=== PATIENT | female | born 1955 | race Two or more races ===

== ENCOUNTER 2019-04-14 10:24 | Inpatient (IN) | payer OTHER ==
[~2019-04-14] VITALS: Ht 162.6 cm; Wt 74.8 kg
[~2019-04-14 10:24] MED LIST: ASPI-630 PO; BISO1TAB45 PO; LEVO112T2 PO; METF500T16 PO; METO1TAB7 PO
[2019-04-14] MEDS ORDERED: VANCOMYCIN 1 GM in IV NORMAL SALINE 250ML 250 ML IV SCH (11:00)
[2019-04-14 11:58] LABS: BASO # 0.1 x10^3/uL (0.0-0.2); BASO % 1 % (0-3); EOS # 0.1 x10^3/uL (0.0-0.7); EOS % 2 % (0-3); HEMATOCRIT 37.6 % (36.0-47.0); HEMOGLOBIN 12.4 g/dL (12.0-15.5); LYMPH # 1.3 x10^3/uL (1.0-4.8); LYMPH % 22 % (24-48); MEAN CORPUSCULAR HEMOGLOBIN 30 pg (25-35); MEAN CORPUSCULAR HGB CONC 33 g/dL (31-37); MEAN CORPUSCULAR VOLUME 91 fL (79-100); MONO # 0.9 x10^3/uL (0.0-1.1); MONO % 14 % (0-9); NEUT # 3.8 x10^3uL (1.8-7.7); NEUT % 62 % (31-73); PLATELET COUNT 182 x10^3/uL (140-400); RED BLOOD COUNT 4.14 x10^6/uL (3.50-5.40); RED CELL DISTRIBUTION WIDTH 13.1 % (11.5-14.5); WHITE BLOOD COUNT 6.2 x10^3/uL (4.0-11.0)
[2019-04-14 12:24] LABS: ALBUMIN 3.3 g/dL (3.4-5.0); ALBUMIN/GLOBULIN RATIO 0.8 (1.0-1.7); CALCIUM 9.4 mg/dL (8.5-10.1); CREATININE 0.7 mg/dL (0.6-1.0); GFR 84.8; TOTAL BILIRUBIN 0.3 mg/dL (0.2-1.0); TOTAL PROTEIN 7.4 g/dL (6.4-8.2)
[2019-04-14] MEDS ORDERED: VANCOMYCIN 1.75 GM in IV NORMAL SALINE 500ML BAG 500 ML IV ONE (13:00)
[2019-04-14] MEDS: IBUPROFEN 400 MG TABLET. PO PRN (13:31)
--- NOTE | 2019-04-14 14:18 | HP ---
ADMIT DATE: 04/14/2019 CHIEF COMPLAINT: Abscess. HISTORY OF PRESENT ILLNESS: The patient was seen in the office 3 days prior to admission by Dr. Harvey with a large infected sebaceous cyst in the right lateral abdominal wall. She had this opened in an urgent care facility the day before and placed on Keflex and Bactrim and cultures done, but the opening is very small. Cultures not available. Dr. Harvey performed further more aggressive I and D and large sebaceous sac and necrotic material removed, but the patient has failed to improve despite continued oral antibiotics. PAST MEDICAL HISTORY: Well controlled diabetes, A1c 7.5, takes metformin and other medications. No other serious medical problems. ALLERGIES: No known drug allergies. SOCIAL HISTORY: Nonsmoker, , employed, nondrinker, physically active. FAMILY HISTORY: Unremarkable. REVIEW OF SYSTEMS: No other problems. OBJECTIVE: ENT: All within normal limits. NECK: No masses, nodes or bruits. LUNGS: Clear. CARDIOVASCULAR: Regular rate. No tachycardia. ABDOMEN: Large, indurated, red, open wound in the right upper abdominal wall with some bloody, slightly purulent debris and lots of duration, but no fluctuance or pus or purulent material present. There is a finding of redness around the wound. No streaks were seen or adenopathy. EXTREMITIES: Unremarkable. NEUROLOGIC: Physiologic. ASSESSMENT: Abscess of the right upper abdominal wall secondary to infected sebaceous cyst. She has failed to improve as an outpatient with oral cephalexin and Bactrim and aggressive incision and drainage. PLAN: Intravenous vancomycin, pending cultures and further evaluation as indicated. JOSEPHINE BELLA MD DR: SUZY/nts JOB#: [id number] / [id number]
[2019-04-14] MEDS: VANCOMYCIN PER PHARMACY MC PRN (14:24)
[2019-04-14 15:00] VITALS: BP 168/65
[2019-04-14 19:20] VITALS: BP 117/56
[2019-04-14] MEDS: LACTOBACILLUS RHAMNOSUS GG 1 CAPSULE. PO SCH (20:20)
[2019-04-14 23:24] VITALS: BP 126/65
[2019-04-15] MEDS: VANCOMYCIN 1.25 GM in IV NORMAL SALINE 250ML 250 ML IV SCH ×2 (02:11→13:47)
[2019-04-15 03:11] VITALS: BP 131/62
[2019-04-15 07:00] VITALS: BP 128/58
[2019-04-15 07:32] LABS: CREATININE 0.7 mg/dL (0.6-1.0); GFR 84.8
[2019-04-15] MEDS ORDERED: metFORMIN 500 MG TABLET PO SCH ×2 (08:00)
--- NOTE | 2019-04-15 08:27 | PDOC ---
Provider Note Provider Note vss, no temp, wound 30% less indurated and [id number] less circumferential, less drainage- labs ok, cont vanvo, surg consult but doubt need for further I/D- tetanus shot- NEEDS TO BE IN HOSPITAL JOSEPHINE BELLA MD April 15, 2019 08:27
[2019-04-15] MEDS: LACTOBACILLUS RHAMNOSUS GG 1 CAPSULE. PO SCH ×2 (08:36→21:03)
[2019-04-15] MEDS: ASPIRIN CHEWABLE 81 MG TABLET. PO SCH (08:37)
[2019-04-15] MEDS ORDERED: LEVOTHYROXINE 112 MCG TABLET PO SCH (09:00)
[2019-04-15] MEDS ORDERED: HCTZ PO SCH (09:00)
[2019-04-15] MEDS ORDERED: hydroCHLOROthiazide 25 MG TABLET PO SCH (09:00)
[2019-04-15] MEDS ORDERED: ATENOLOL 50 MG TABLET. PO SCH (09:00)
[2019-04-15] MEDS ORDERED: BISOPROLOL FUMARATE PO SCH (09:00)
[2019-04-15] MEDS ORDERED: DIPHTH,PERTUSS(ACELL),TET TOX 0.5 ML DISP.SYRIN. VAX IM ONE (09:00)
[2019-04-15] MEDS ORDERED: METOPROLOL SUCC 24HR ER 100 MG TAB.ER.24H. PO SCH (09:00)
[2019-04-15] MEDS ORDERED: METF10007 PO (09:23)
[2019-04-15] MEDS ORDERED: BISO1TAB10 PO (09:23)
[2019-04-15] MEDS ORDERED: LEVO88TA4 PO (09:23)
[2019-04-15] MEDS ORDERED: RANI-376 PO (09:23)
[2019-04-15] MEDS ORDERED: GLIM2TAB2 PO (09:23)
[2019-04-15] MEDS ORDERED: ATOR40TA59 PO (09:23)
[2019-04-15] MEDS: LEVOTHYROXINE 88 MCG TABLET PO SCH (09:36)
[2019-04-15] MEDS: IBUPROFEN 400 MG TABLET. PO PRN (09:37)
[2019-04-15] MEDS: GLIMEPIRIDE 2 MG TABLET. PO SCH (09:37)
[2019-04-15] MEDS: FAMOTIDINE 20 MG TABLET. PO SCH ×2 (09:37→21:03)
[2019-04-15] MEDS: BACITRACIN TOPICAL OINT 14GM TUBE. TP SCH ×3 (09:38→21:12)
--- NOTE | 2019-04-15 09:39 | PDOC2 ---
BOSTON VICENTE ORTHOTIC ASSISTANT 04/15/19 0939: CONSULT Date of Consult Date of Consult DATE: 04/15/19 TIME: 09:32 Reason for Consult Reason for Consult: abscess Referring Physician Referring Physician: Dr Fitch Identification/Chief Complaint Chief Complaint infected cyst Source Source: Chart review, Patient History of Present Illness Reason for Visit: Infected sebaceous cyst in the right lateral abdominal wall. She had an I&D done at a urgent care. It did not improve, a more extensive I&D by Dr Harvey. Continued to not improve Past Medical History Endocrine: Diabetes Past Surgical History Past Surgical History: No pertinent history Family History Family History: Other (noncontributory to current illness) Social History No ALCOHOL: none Lives: with Family Current Medications Current Medications Current Medications Vancomycin HCl 1.75 gm/Sodium Chloride 500 ml @ 250 mls/hr 1X ONCE IV Last administered on 04/14/19at 14:07; Start 04/14/19 at 13:00; Stop 04/14/19 at 14:59; Status DC Vancomycin HCl 1 gm/Sodium Chloride 250 ml @ 250 mls/hr Q12H IV ; Start 04/14/19 at 11:00; Status UNV Acetaminophen/ Hydrocodone Bitart (Lortab 5/325) 1 tab PRN Q4HRS PRN PO PAIN; Start 04/14/19 at 11:00 Ibuprofen (Motrin) 400 mg PRN Q6HRS PRN PO INFLAMMATION Last administered on 04/14/19at 13:31; Start 04/14/19 at 11:00 Vancomycin HCl (Vanco Per Pharmacy) 1 each PRN DAILY PRN MC SEE COMMENTS Last administered on 04/14/19at 14:24; Start 04/14/19 at 11:15 Vancomycin HCl 1.25 gm/Sodium Chloride 250 ml @ 167 mls/hr Q12H IV Last administered on 04/15/19at 02:11; Start 04/15/19 at 02:00 Vancomycin HCl (Vancomycin Trough Level) 1 each 1X ONCE MC ; Start 04/16/19 at 01:30; Stop 04/16/19 at 01:31 Lactobacillus Rhamnosus (Culturelle) 1 cap BID PO Last administered on 04/15/19at 08:36; Start 04/14/19 at 21:00 Aspirin (Children'S Aspirin) 81 mg DAILY PO Last administered on 04/15/19at 08:37; Start 04/15/19 at 09:00 Levothyroxine Sodium (Synthroid) 112 mcg DAILY PO ; Start 04/15/19 at 09:00; Stop 04/15/19 at 09:25; Status DC Non-Formulary Medication (Bisoprolol Fumarate/Hctz (Ziac 5-6.25 Mg Tablet)) 1 each DAILY PO ; Start 04/15/19 at 09:00; Status UNV Metformin HCl (Glucophage) 500 mg BIDWMEALS PO ; Start 04/15/19 at 08:00; Stop 04/15/19 at 09:25; Status DC Metoprolol Succinate (Toprol Xl) 100 mg DAILY PO ; Start 04/15/19 at 09:00; Stop 04/15/19 at 09:25; Status DC Hydrochlorothiazide (Hydrodiuril) 31.25 mg DAILY PO ; Start 04/15/19 at 09:00; Stop 04/15/19 at 09:25; Status DC Atenolol (Tenormin) 50 mg DAILY PO ; Start 04/15/19 at 09:00; Stop 04/15/19 at 09:00; Status DC Diphtheria/ Tetanus/Acell Pertussis (Boostrix) 0.5 ml ONCE ONCE VAX IM ; Start 04/15/19 at 09:00; Stop 04/15/19 at 09:01; Status DC Bacitracin 1 monica [id number] TP ; Start 04/15/19 at 09:00 Atorvastatin Calcium (Lipitor) 40 mg QHS PO ; Start 04/15/19 at 21:00 Glimepiride (Amaryl) 2 mg DAILY PO ; Start 04/15/19 at 10:00 Levothyroxine Sodium (Synthroid) 88 mcg DAILY PO ; Start 04/16/19 at 09:00; Status UNV Non-Formulary Medication (Metformin Hcl ) 1,000 mg BIDWMEALS PO ; Start 04/15/19 at 17:00; Status UNV Famotidine (Pepcid) 20 mg BID PO ; Start 04/15/19 at 10:00 Active Scripts Active Reported Glimepiride 2 Mg Tablet 1 Tab PO DAILY Bisoprolol-Hctz 2.5-6.25 Mg Tb (Bisoprolol Fumarate/Hctz) 1 Each Tablet 1 Each PO DAILY Atorvastatin Calcium 40 Mg Tablet 1 Tab PO QHS Metformin Hcl 1,000 Mg Tablet 1,000 Mg PO BIDWMEALS Zantac (Ranitidine Hcl) 150 Mg Tablet 1 Tab PO BID Levothyroxine Sodium 88 Mcg Tablet 1 Tab PO DAILY Aspirin 81 Mg Tab.chew 81 Mg PO DAILY Allergies Allergies: Coded Allergies: No Known Drug Allergies (Unverified , 02/17/14) ROS General: No: Chills, Other (FEvers) PSYCHOLOGICAL ROS: No: Anxiety, Depression Eyes: No Blurry vision, No Double vision HEENT: No: Heacaches, Sore Throat Hematological and Lymphatic: No: Bleeding Problems, Blood Clots Respiratory: No: Cough, SOB with excertion Cardiovascular: No Chest Pain, No Palpitations Gastrointestinal: No Nausea, No Vomiting Genitourinary: No Dysuria, No Hematuria Musculoskeletal: No Joint Pain, No Muscle Pain Neurological: No Impaired Coord/balance, No Numbness/Tingling Skin: Yes Other (see hpi) Physical Exam General: Alert, Oriented X3, Cooperative, No acute distress HEENT: PERRLA, Mucous membr. moist/pink Lungs: Clear to auscultation, Normal air movement Heart: Regular rate, Normal S1, Normal S2, No murmurs Abdomen: Soft, Other (ND, right abd wall with open wound, appears to have some necrosis to inside of wound, + erythema, significant induration, tenderness on exam ) Extremities: No clubbing, No cyanosis Skin: No rashes, No breakdown Neuro: Normal gait, Normal speech Psych/Mental Status: Mental status NL, Mood NL MUSCULOSKELETAL: No deformity, No swelling Vitals VITALS Vital Signs Date Time Temp Pulse Resp B/P (MAP) Pulse Ox O2 Delivery O2 Flow Rate FiO2 04/15/19 07:00 98.1 58 16 128/58 (81) 95 Room Air 98.1 Labs Labs Laboratory Tests Test 04/14/19 11:40 04/14/19 12:02 04/14/19 16:38 04/14/19 21:20 White Blood Count 6.2 x10^3/uL (4.0-11.0) Red Blood Count 4.14 x10^6/uL (3.50-5.40) Hemoglobin 12.4 g/dL (12.0-15.5) Hematocrit 37.6 % (36.0-47.0) Mean Corpuscular Volume 91 fL (79-100) Mean Corpuscular Hemoglobin 30 pg (25-35) Mean Corpuscular Hemoglobin Concent 33 g/dL (31-37) Red Cell Distribution Width 13.1 % (11.5-14.5) Platelet Count 182 x10^3/uL (140-400) Neutrophils (%) (Auto) 62 % (31-73) Lymphocytes (%) (Auto) 22 % (24-48) Monocytes (%) (Auto) 14 % (0-9) Eosinophils (%) (Auto) 2 % (0-3) Basophils (%) (Auto) 1 % (0-3) Neutrophils # (Auto) 3.8 x10^3uL (1.8-7.7) Lymphocytes # (Auto) 1.3 x10^3/uL (1.0-4.8) Monocytes # (Auto) 0.9 x10^3/uL (0.0-1.1) Eosinophils # (Auto) 0.1 x10^3/uL (0.0-0.7) Basophils # (Auto) 0.1 x10^3/uL (0.0-0.2) Sodium Level 139 mmol/L (136-145) Potassium Level 4.0 mmol/L (3.5-5.1) Chloride Level 101 mmol/L (98-107) Carbon Dioxide Level 26 mmol/L (21-32) Anion Gap 12 (6-14) Blood Urea Nitrogen 13 mg/dL (7-20) Creatinine 0.7 mg/dL (0.6-1.0) Estimated GFR (Cockcroft-Gault) 84.8 BUN/Creatinine Ratio 19 (6-20) Glucose Level 170 mg/dL (70-99) Calcium Level 9.4 mg/dL (8.5-10.1) Total Bilirubin 0.3 mg/dL (0.2-1.0) Aspartate Amino Transf (AST/SGOT) 46 U/L (15-37) Alanine Aminotransferase (ALT/SGPT) 66 U/L (14-59) Alkaline Phosphatase 120 U/L (46-116) Total Protein 7.4 g/dL (6.4-8.2) Albumin 3.3 g/dL (3.4-5.0) Albumin/Globulin Ratio 0.8 (1.0-1.7) Glucose (Fingerstick) 137 mg/dL (70-99) 96 mg/dL (70-99) 157 mg/dL (70-99) Test 04/15/19 06:15 04/15/19 07:10 Creatinine 0.7 mg/dL (0.6-1.0) Estimated GFR (Cockcroft-Gault) 84.8 Glucose (Fingerstick) 141 mg/dL (70-99) Laboratory Tests Test 04/14/19 11:40 04/14/19 12:02 04/14/19 16:38 04/14/19 21:20 White Blood Count 6.2 x10^3/uL (4.0-11.0) Red Blood Count 4.14 x10^6/uL (3.50-5.40) Hemoglobin 12.4 g/dL (12.0-15.5) Hematocrit 37.6 % (36.0-47.0) Mean Corpuscular Volume 91 fL (79-100) Mean Corpuscular Hemoglobin 30 pg (25-35) Mean Corpuscular Hemoglobin Concent 33 g/dL (31-37) Red Cell Distribution Width 13.1 % (11.5-14.5) Platelet Count 182 x10^3/uL (140-400) Neutrophils (%) (Auto) 62 % (31-73) Lymphocytes (%) (Auto) 22 % (24-48) Monocytes (%) (Auto) 14 % (0-9) Eosinophils (%) (Auto) 2 % (0-3) Basophils (%) (Auto) 1 % (0-3) Neutrophils # (Auto) 3.8 x10^3uL (1.8-7.7) Lymphocytes # (Auto) 1.3 x10^3/uL (1.0-4.8) Monocytes # (Auto) 0.9 x10^3/uL (0.0-1.1) Eosinophils # (Auto) 0.1 x10^3/uL (0.0-0.7) Basophils # (Auto) 0.1 x10^3/uL (0.0-0.2) Sodium Level 139 mmol/L (136-145) Potassium Level 4.0 mmol/L (3.5-5.1) Chloride Level 101 mmol/L (98-107) Carbon Dioxide Level 26 mmol/L (21-32) Anion Gap 12 (6-14) Blood Urea Nitrogen 13 mg/dL (7-20) Creatinine 0.7 mg/dL (0.6-1.0) Estimated GFR (Cockcroft-Gault) 84.8 BUN/Creatinine Ratio 19 (6-20) Glucose Level 170 mg/dL (70-99) Calcium Level 9.4 mg/dL (8.5-10.1) Total Bilirubin 0.3 mg/dL (0.2-1.0) Aspartate Amino Transf (AST/SGOT) 46 U/L (15-37) Alanine Aminotransferase (ALT/SGPT) 66 U/L (14-59) Alkaline Phosphatase 120 U/L (46-116) Total Protein 7.4 g/dL (6.4-8.2) Albumin 3.3 g/dL (3.4-5.0) Albumin/Globulin Ratio 0.8 (1.0-1.7) Glucose (Fingerstick) 137 mg/dL (70-99) 96 mg/dL (70-99) 157 mg/dL (70-99) Test 04/15/19 06:15 04/15/19 07:10 Creatinine 0.7 mg/dL (0.6-1.0) Estimated GFR (Cockcroft-Gault) 84.8 Glucose (Fingerstick) 141 mg/dL (70-99) Assessment/Plan Assessment/Plan continue abx watch wound, may need surgical debridement if not improving THAO SCHAEFFER MD 04/15/19 1332: CONSULT Assessment/Plan Assessment/Plan pt seen, interviewed (with help of her granddaughter who translates) and examined will get US to assess for possible need to debride await those results will follow Thanks for consult BOSTON VICENTE APRN April 15, 2019 09:39 THAO SCHAEFFER MD April 15, 2019 13:32
[2019-04-15 11:00] VITALS: BP 113/54
[2019-04-15] MEDS: MULTIVITAMIN with MINERAL TABLET. PO SCH (12:22)
[2019-04-15] MEDS: VANCOMYCIN PER PHARMACY MC PRN (13:02)
--- NOTE | 2019-04-15 13:39 | NUR ---
SW following for discharge planning. Discussed with RN, pt is from home, [place]is[place] speaking. Pt on abx here, possible surgery. RN advised no SW needs at this time. SW will continue to follow.
[2019-04-15 15:00] VITALS: BP 124/63
--- NOTE | 2019-04-15 15:31 | NUR ---
Wound Care Pt seen for wound care consultation re: R flank wound. Dressing removed, pt has a large, indurated, red, open incision from a previous I&D in PCP's office approx. 1 week ago, per pt's granddaughter. Wound draining purulent, bloody drainage. General Surgery awaiting soft tissue U/S to determine surgical needs. Instructed MORIS Robles to pack wound with Aquacel AG rope, gauze and tape after U/S is completed, change every other day. Wound temporarily dressed with gauze and tape, no other wounds noted on full skin inspection. Will f/u on Thursday after Surgery rounds.
--- NOTE | 2019-04-15 16:10 | NUR ---
Waiting for US to be done, wound care orders received. Wound to right posterior flank will not be packed per wound care orders until US is completed to prevent unnecessary discomfort to Pt.
--- NOTE | 2019-04-15 17:36 | RAD ---
Ultrasound of the right posterior flank 04/15/2019 CLINICAL HISTORY: Suspected abscess in the right posterior flank. TECHNIQUE: A real-time ultrasound examination of the soft tissues of the right posterior flank in the area of the patient's swelling and incision site was performed. Multiple images were obtained. FINDINGS: Immediately deep to the skin surface at the level of the patient's incision, a complex somewhat oval irregular fluid collection is seen which measures 2.9 cm in greatest diameter. This is consistent with an abscess. No additional abnormal fluid collection is seen. IMPRESSION: 2.9 cm complex fluid collection consistent with an abscess is seen as discussed above. Electronically signed by: Greg Thomas MD (04/15/2019 5:33 PM) [facility]
[2019-04-15 19:00] VITALS: BP 116/62
[2019-04-15] MEDS: metFORMIN 500 MG TABLET PO SCH (21:00)
[2019-04-15] MEDS: ATORVASTATIN CALCIUM 40 MG TABLET. PO SCH (21:03)
[2019-04-15 23:00] VITALS: BP 134/65
[2019-04-16 01:34] LABS: VANC TR 11.8 mcg/mL (10.0-20.0)
[2019-04-16] MEDS: VANCOMYCIN 1.25 GM in IV NORMAL SALINE 250ML 250 ML IV SCH ×2 (02:17→14:12)
[2019-04-16 03:00] VITALS: BP 127/60
[2019-04-16] MEDS: VANCOMYCIN PER PHARMACY MC PRN (05:38)
--- NOTE | 2019-04-16 05:41 | NUR ---
Pharmacy Vancomycin Dosing Note S: Consulted to monitor and dose vancomycin started 04/14/19. O: MELYSSA MORENO is a 63 year old F with Abscess (ABDOMINAL WALL) Cellulitis, . Other Antibiotics: LABS: Last BUN: 13 Last Creatinine: 0.7 Creatinine Clearance: 82 mL/min Last WBC: 6.2 Last Procalcitonin: Tmax (past 24 hours): 98.2 Microbiology: I/O: 340/- Drug Levels: Last Trough level: on 04/16/19 at 0130 Last dose given 04/15/19 at 1347 Vancomycin Dosing: Dosing Weight: Actual Target Trough: 10-20 A: Based on: Trough, Actual Wt and CrCl P: 1. 04/16/19 Continue Vancomycin 1250 mg IV q12h 2. Follow up Trough level in 5 to 7 days as needed 3. Pharmacy will continue to monitor, follow and adjust therapy as needed. MATTY HORAN RPH, 04/16/19 0541 Signed: 04/16/19 at 0544 by MATTY HORAN RPH PHA
[2019-04-16] MEDS ORDERED: NEOMY/BACITR/POLYMYXIN OINT PACKET. TP ONE (06:03)
[2019-04-16] MEDS ORDERED: BUPIVACAINE MPF 0.5% 30 ML VIAL. ONE (06:04)
[2019-04-16] MEDS ORDERED: HYDROmorphone 2 MG/ML VIAL IV PRN (07:00)
[2019-04-16] MEDS ORDERED: MORPHINE SULFATE 2 MG/ML VIAL. IV PRN (07:00)
[2019-04-16] MEDS ORDERED: PROCHLORPERAZINE 10 MG/2 ML VIAL. IV PRN (07:00)
[2019-04-16] MEDS ORDERED: ONDANSETRON PF 4 MG/2 ML VIAL. IV PRN (07:00)
[2019-04-16] MEDS ORDERED: fentaNYL PF VIAL 100 MCG/2 ML VIAL IV PRN ×2 (07:00)
[2019-04-16] MEDS ORDERED: LIDOCAINE 1% PF 2 ML VIAL. ID PRN (07:00)
[2019-04-16] MEDS ORDERED: IV RINGERS,LACTATED 1000ML 1,000 ML IV SCH (07:00)
[2019-04-16] MEDS ORDERED: BUPIVAC MPF-EPI 0.5%-1:200000 30 ML VIAL. ONE (07:04)
[2019-04-16] MEDS ORDERED: fentaNYL PF VIAL 100 MCG/2 ML VIAL ONE (07:22)
[2019-04-16] MEDS ORDERED: LIDOCAINE 2% PF 5 ML VIAL. ONE (07:22)
[2019-04-16] MEDS ORDERED: PROPOFOL 20 ML IV ONE (07:22)
[2019-04-16] MEDS ORDERED: DEXAMETHASONE SOD PHOS 4 MG/ML VIAL ONE (07:56)
[2019-04-16] MEDS: BACITRACIN TOPICAL OINT 14GM TUBE. TP SCH (08:00)
[2019-04-16] MEDS ORDERED: SEVOFLURANE 31 TO 60 MINUTES. IH ONE (08:01)
--- NOTE | 2019-04-16 08:42 | PDOC ---
BRIEF OPERATIVE NOTE Date: April 16, 2019 Pre-Op Diagnosis sebaceous abscess Post-Op Diagnosis same Procedure Performed excisional debridement of skin, subcutaneous fat and muscle Surgeon Hunter Anesthesia Type: General (LMA) Blood Loss 10cc IV Fluid 300cc Specimens Obtained cultures Findings sebaceous absces extending down into the abdominal wall musculature Complications none Operative Note Wk # [id number] THAO SCHAEFFER MD April 16, 2019 08:42
--- NOTE | 2019-04-16 09:19 | PDOC ---
GENERAL General: patient is down in surgery for I&D abscess. discussed with nursing who feel she is doing ok otherwise. will see later today or tomorrow if not back from surgery in time. VITAL SIGNS Vital Signs: Vital Signs Date Time Temp Pulse Resp B/P (MAP) Pulse Ox O2 Delivery O2 Flow Rate FiO2 04/16/19 08:54 98.1 69 18 141/68 96 Room Air 98.1 04/16/19 08:49 10 I & O I & O Intake and Output 04/16/19 06:59 # Voids 4 ALLERGIES Allergies: Allergies Coded Allergies Type Severity Reaction Last Updated Verified No Known Drug Allergies 02/17/14 No MEDS Medications: Current Medications Medications (Trade) Dose Ordered Sig/Candelario Start Time Stop Time Status Last Admin Dose Admin Acetaminophen/ Hydrocodone Bitart (Lortab 5/325) 1 tab PRN Q4HRS PRN 04/14/19 11:00 Aspirin (Children'S Aspirin) 81 mg DAILY 04/15/19 09:00 04/15/19 08:37 81 MG Atenolol (Tenormin) 50 mg DAILY 04/15/19 09:00 04/15/19 09:00 DC Atorvastatin Calcium (Lipitor) 40 mg QHS 04/15/19 21:00 04/15/19 21:03 40 MG Bacitracin 1 monica [id number] 04/15/19 09:00 04/15/19 21:12 1 MONICA Bupivacaine HCl (Sensorcaine Mpf 0.5%) 30 ml STK-MED ONCE 04/16/19 06:04 04/16/19 07:04 DC Bupivacaine HCl/ Epinephrine Bitart (Sensorcain-Mpf Epi 0.5%-1:[id number]) 30 ml STK-MED ONCE 04/16/19 07:04 04/16/19 08:04 DC 04/16/19 08:03 30 ML Dexamethasone Sodium Phosphate (Decadron) 4 mg STK-MED ONCE 04/16/19 07:56 04/16/19 07:57 DC Diphtheria/ Tetanus/Acell Pertussis (Boostrix) 0.5 ml ONCE ONCE 04/15/19 09:00 04/15/19 09:01 DC 04/15/19 09:40 0.5 ML Famotidine (Pepcid) 20 mg BID 04/15/19 10:00 04/15/19 21:03 20 MG Fentanyl Citrate (Fentanyl 2ml Vial) 100 mcg STK-MED ONCE 04/16/19 07:22 04/16/19 07:23 DC Glimepiride (Amaryl) 2 mg DAILY 04/15/19 10:00 04/15/19 09:37 2 MG Hydrochlorothiazide (Hydrodiuril) 31.25 mg DAILY 04/15/19 09:00 04/15/19 09:25 DC Hydromorphone HCl (Dilaudid) 0.5 mg PRN Q10MIN PRN 04/16/19 07:00 04/17/19 06:59 Ibuprofen (Motrin) 400 mg PRN Q6HRS PRN 04/14/19 11:00 04/15/19 09:37 400 MG Lactobacillus Rhamnosus (Culturelle) 1 cap BID 04/14/19 21:00 04/15/19 21:03 1 CAP Levothyroxine Sodium (Synthroid) 88 mcg DAILY06 04/15/19 10:00 Lidocaine HCl (Lidocaine Pf 2% Vial) 5 ml STK-MED ONCE 04/16/19 07:22 04/16/19 07:23 DC Lidocaine HCl (Xylocaine-Mpf 1% 2ml Vial) 2 ml PRN 1X PRN 04/16/19 07:00 04/17/19 06:59 Metformin HCl (Glucophage) 1,000 mg BID 04/15/19 21:00 Metoprolol Succinate (Toprol Xl) 100 mg DAILY 04/15/19 09:00 04/15/19 09:25 DC Morphine Sulfate (Morphine Sulfate) 1 mg PRN Q10MIN PRN 04/16/19 07:00 04/17/19 06:59 Multivitamins (Thera M Plus) 1 tab DAILY 04/15/19 12:00 04/15/19 12:22 1 TAB Neomycin/ Polymyxin/ Bacitracin (Triple Antibiotic Ointment) 1 pkt STK-MED ONCE 04/16/19 06:03 04/16/19 07:04 DC 04/16/19 08:03 1 PKT Non-Formulary Medication (Bisoprolol Fumarate/Hctz (Ziac 5-6.25 Mg Tablet)) 1 each DAILY 04/15/19 09:00 UNV Ondansetron HCl (Zofran) 4 mg PRN Q6HRS PRN 04/16/19 07:00 04/17/19 06:59 Prochlorperazine Edisylate (Compazine) 5 mg PACU PRN PRN 04/16/19 07:00 04/17/19 06:59 Propofol 20 ml @ As Directed STK-MED ONCE 04/16/19 07:22 04/16/19 07:23 DC Ringer's Solution 1,000 ml @ 30 mls/hr Q24H 04/16/19 07:00 04/16/19 18:59 Sevoflurane (Ultane) 30 ml STK-MED ONCE 04/16/19 08:01 04/16/19 08:03 DC Vancomycin HCl (Vanco Per Pharmacy) 1 each PRN DAILY PRN 04/14/19 11:15 04/16/19 05:38 1 EACH Vancomycin HCl (Vancomycin Trough Level) 1 each 1X ONCE 04/17/19 09:30 04/17/19 09:31 Vancomycin HCl 1.25 gm/Sodium Chloride 250 ml @ 167 mls/hr Q12H 04/16/19 14:00 Vancomycin HCl 1.75 gm/Sodium Chloride 500 ml @ 250 mls/hr 1X ONCE 04/14/19 13:00 04/14/19 14:59 DC 04/14/19 14:07 250 MLS/HR Vancomycin HCl 1 gm/Sodium Chloride 250 ml @ 250 mls/hr Q8H 04/16/19 10:00 Cancel LAB Lab: Laboratory Tests Test 04/16/19 01:05 04/16/19 08:49 Vancomycin Level Trough 11.8 mcg/mL (10.0-20.0) Vancomycin Last Dose Date [id number] Vancomycin Last Dose Time 1400 Glucose (Fingerstick) 167 mg/dL (70-99) MIKEL BAKER MD April 16, 2019 09:19
[2019-04-16] MEDS: LEVOTHYROXINE 88 MCG TABLET PO SCH (09:26)
--- NOTE | 2019-04-16 09:46 | PDOC ---
GENERAL General: seen/examined. awake and alert post op and multiple family members present at [facility]. decreased pain after I&D. chest clear, heart regular, abdomen benign. continue same with dc plans per surgery. VITAL SIGNS Vital Signs: Vital Signs Date Time Temp Pulse Resp B/P (MAP) Pulse Ox O2 Delivery O2 Flow Rate FiO2 04/16/19 08:54 98.1 69 18 141/68 96 Room Air 98.1 04/16/19 08:49 10 I & O I & O Intake and Output 04/16/19 07:00 # Voids 4 ALLERGIES Allergies: Allergies Coded Allergies Type Severity Reaction Last Updated Verified No Known Drug Allergies 02/17/14 No MEDS Medications: Current Medications Medications (Trade) Dose Ordered Sig/Candelario Start Time Stop Time Status Last Admin Dose Admin Acetaminophen/ Hydrocodone Bitart (Lortab 5/325) 1 tab PRN Q4HRS PRN 04/14/19 11:00 Aspirin (Children'S Aspirin) 81 mg DAILY 04/15/19 09:00 04/15/19 08:37 81 MG Atenolol (Tenormin) 50 mg DAILY 04/15/19 09:00 04/15/19 09:00 DC Atorvastatin Calcium (Lipitor) 40 mg QHS 04/15/19 21:00 04/15/19 21:03 40 MG Bacitracin 1 monica [id number] 04/15/19 09:00 04/15/19 21:12 1 MONICA Bupivacaine HCl (Sensorcaine Mpf 0.5%) 30 ml STK-MED ONCE 04/16/19 06:04 04/16/19 07:04 DC Bupivacaine HCl/ Epinephrine Bitart (Sensorcain-Mpf Epi 0.5%-1:965460) 30 ml STK-MED ONCE 04/16/19 07:04 04/16/19 08:04 DC 04/16/19 08:03 30 ML Dexamethasone Sodium Phosphate (Decadron) 4 mg STK-MED ONCE 04/16/19 07:56 04/16/19 07:57 DC Diphtheria/ Tetanus/Acell Pertussis (Boostrix) 0.5 ml ONCE ONCE 04/15/19 09:00 04/15/19 09:01 DC 04/15/19 09:40 0.5 ML Famotidine (Pepcid) 20 mg BID 04/15/19 10:00 04/15/19 21:03 20 MG Fentanyl Citrate (Fentanyl 2ml Vial) 100 mcg STK-MED ONCE 04/16/19 07:22 04/16/19 07:23 DC Glimepiride (Amaryl) 2 mg DAILY 04/15/19 10:00 04/15/19 09:37 2 MG Hydrochlorothiazide (Hydrodiuril) 31.25 mg DAILY 04/15/19 09:00 04/15/19 09:25 DC Hydromorphone HCl (Dilaudid) 0.5 mg PRN Q10MIN PRN 04/16/19 07:00 04/17/19 06:59 Ibuprofen (Motrin) 400 mg PRN Q6HRS PRN 04/14/19 11:00 04/15/19 09:37 400 MG Lactobacillus Rhamnosus (Culturelle) 1 cap BID 04/14/19 21:00 04/15/19 21:03 1 CAP Levothyroxine Sodium (Synthroid) 88 mcg DAILY06 04/15/19 10:00 04/16/19 09:26 88 MCG Lidocaine HCl (Lidocaine Pf 2% Vial) 5 ml STK-MED ONCE 04/16/19 07:22 04/16/19 07:23 DC Lidocaine HCl (Xylocaine-Mpf 1% 2ml Vial) 2 ml PRN 1X PRN 04/16/19 07:00 04/17/19 06:59 Metformin HCl (Glucophage) 1,000 mg BID 04/15/19 21:00 Metoprolol Succinate (Toprol Xl) 100 mg DAILY 04/15/19 09:00 04/15/19 09:25 DC Morphine Sulfate (Morphine Sulfate) 1 mg PRN Q10MIN PRN 04/16/19 07:00 04/17/19 06:59 Multivitamins (Thera M Plus) 1 tab DAILY 04/15/19 12:00 04/15/19 12:22 1 TAB Neomycin/ Polymyxin/ Bacitracin (Triple Antibiotic Ointment) 1 pkt STK-MED ONCE 04/16/19 06:03 04/16/19 07:04 DC 04/16/19 08:03 1 PKT Non-Formulary Medication (Bisoprolol Fumarate/Hctz (Ziac 5-6.25 Mg Tablet)) 1 each DAILY 04/15/19 09:00 UNV Ondansetron HCl (Zofran) 4 mg PRN Q6HRS PRN 04/16/19 07:00 04/17/19 06:59 Prochlorperazine Edisylate (Compazine) 5 mg PACU PRN PRN 04/16/19 07:00 04/17/19 06:59 Propofol 20 ml @ As Directed STK-MED ONCE 04/16/19 07:22 04/16/19 07:23 DC Ringer's Solution 1,000 ml @ 30 mls/hr Q24H 04/16/19 07:00 04/16/19 18:59 Sevoflurane (Ultane) 30 ml STK-MED ONCE 04/16/19 08:01 04/16/19 08:03 DC Vancomycin HCl (Vanco Per Pharmacy) 1 each PRN DAILY PRN 04/14/19 11:15 04/16/19 05:38 1 EACH Vancomycin HCl (Vancomycin Trough Level) 1 each 1X ONCE 04/17/19 09:30 04/17/19 09:31 Vancomycin HCl 1.25 gm/Sodium Chloride 250 ml @ 167 mls/hr Q12H 04/16/19 14:00 Vancomycin HCl 1.75 gm/Sodium Chloride 500 ml @ 250 mls/hr 1X ONCE 04/14/19 13:00 04/14/19 14:59 DC 04/14/19 14:07 250 MLS/HR Vancomycin HCl 1 gm/Sodium Chloride 250 ml @ 250 mls/hr Q8H 04/16/19 10:00 Cancel LAB Lab: Laboratory Tests Test 04/16/19 01:05 04/16/19 08:49 Vancomycin Level Trough 11.8 mcg/mL (10.0-20.0) Vancomycin Last Dose Date [id number] Vancomycin Last Dose Time 1400 Glucose (Fingerstick) 167 mg/dL (70-99) MIKEL BAKER MD April 16, 2019 09:46
[2019-04-16] MEDS ORDERED: VANCOMYCIN 1 GM in IV NORMAL SALINE 250ML 250 ML IV SCH (10:00)
[2019-04-16] MEDS: ASPIRIN CHEWABLE 81 MG TABLET. PO SCH (10:07)
[2019-04-16] MEDS: MULTIVITAMIN with MINERAL TABLET. PO SCH (10:07)
[2019-04-16] MEDS: HYDROcodone/APAP 5/325MG 1 TAB TABLET PO PRN (10:07)
[2019-04-16] MEDS: LACTOBACILLUS RHAMNOSUS GG 1 CAPSULE. PO SCH ×2 (10:07→20:29)
[2019-04-16] MEDS: GLIMEPIRIDE 2 MG TABLET. PO SCH (10:08)
[2019-04-16] MEDS: metFORMIN 500 MG TABLET PO SCH ×2 (10:08→20:28)
[2019-04-16] MEDS: FAMOTIDINE 20 MG TABLET. PO SCH ×2 (10:08→20:28)
[2019-04-16 11:00] VITALS: BP 128/52
--- NOTE | 2019-04-16 13:08 | OP ---
DATE OF SURGERY: 04/16/2019 PREOPERATIVE DIAGNOSIS: Sebaceous abscess, right mid abdomen. POSTOPERATIVE DIAGNOSIS: Sebaceous abscess, right mid abdomen. PROCEDURE: Excisional debridement of skin, subcutaneous tissue, fat and muscle. SURGEON: Thao Schaeffer MD ANESTHESIA: General LMA. BLOOD LOSS: 10. INTRAVENOUS: 300. INDICATIONS: The patient is a 63-year-old lady who has had 2 previous I and Ds of an abscess on her right flank. She is brought for debridement after ultrasound suggested persistent collection. DESCRIPTION OF PROCEDURE: The patient brought to the operating suite, given a general LMA and placed in the left lateral decubitus position. The right flank lesion was prepped and draped in usual sterile fashion. An elliptical incision around the open skin was made and the skin, subcutaneous tissue, subcutaneous fat, and muscle were excised. Cultures were taken. Hemostasis with cautery. Wound irrigated and again checked for hemostasis. When present and a correct sponge count was obtained, the wound was dressed with antibiotic ointment and 1-inch plain Nu Gauze soaked in saline. Sterile dressing applied. The patient taken out of the lateral decubitus position, awakened from her anesthetic and taken to the recovery room in satisfactory condition. THAO SCHAEFFER MD DR: JOSSELIN/kirsten JOB#: [id number] / [id number]
[2019-04-16 15:00] VITALS: BP 133/63
[2019-04-16 19:00] VITALS: BP 138/62
[2019-04-16] MEDS: ATORVASTATIN CALCIUM 40 MG TABLET. PO SCH (20:28)
[2019-04-16 23:00] VITALS: BP 130/68
[2019-04-17] MEDS: VANCOMYCIN 1.25 GM in IV NORMAL SALINE 250ML 250 ML IV SCH ×2 (02:09→14:15)
[2019-04-17 03:00] VITALS: BP 128/54
[2019-04-17] MEDS: LEVOTHYROXINE 88 MCG TABLET PO SCH (06:00)
[2019-04-17 07:00] VITALS: BP 133/61
[2019-04-17 07:32] LABS: CALCIUM 8.6 mg/dL (8.5-10.1); POTASSIUM 3.9 mmol/L (3.5-5.1)
[2019-04-17 07:36] LABS: BASO % 1 % (0-3); CREATININE 0.7 mg/dL (0.6-1.0); EOS # 0.1 x10^3/uL (0.0-0.7); EOS % 1 % (0-3); GFR 84.8; HEMATOCRIT 34.9 % (36.0-47.0); LYMPH # 1.9 x10^3/uL (1.0-4.8); LYMPH % 25 % (24-48); MEAN CORPUSCULAR HEMOGLOBIN 31 pg (25-35); MEAN CORPUSCULAR HGB CONC 34 g/dL (31-37); MEAN CORPUSCULAR VOLUME 90 fL (79-100); MONO # 0.6 x10^3/uL (0.0-1.1); MONO % 8 % (0-9); NEUT # 4.8 x10^3uL (1.8-7.7); NEUT % 65 % (31-73); PLATELET COUNT 194 x10^3/uL (140-400); RED BLOOD COUNT 3.88 x10^6/uL (3.50-5.40); RED CELL DISTRIBUTION WIDTH 12.6 % (11.5-14.5); WHITE BLOOD COUNT 7.4 x10^3/uL (4.0-11.0)
[2019-04-17] MEDS: metFORMIN 500 MG TABLET PO SCH ×2 (09:00→19:53)
[2019-04-17] MEDS: BISOPROLOL PO SCH (09:08)
[2019-04-17] MEDS: FAMOTIDINE 20 MG TABLET. PO SCH ×2 (09:08→19:53)
[2019-04-17] MEDS: LACTOBACILLUS RHAMNOSUS GG 1 CAPSULE. PO SCH ×2 (09:08→19:53)
[2019-04-17] MEDS: ASPIRIN CHEWABLE 81 MG TABLET. PO SCH (09:08)
[2019-04-17] MEDS: HYDROCHLOROTHIAZIDE PO SCH (09:08)
[2019-04-17] MEDS: GLIMEPIRIDE 2 MG TABLET. PO SCH (09:08)
[2019-04-17] MEDS: MULTIVITAMIN with MINERAL TABLET. PO SCH (09:08)
--- NOTE | 2019-04-17 09:22 | PDOC ---
SURGICAL PROGRESS NOTE Subjective RN translates only minimal pain Vital Signs Vital Signs Date Time Temp Pulse Resp B/P (MAP) Pulse Ox O2 Delivery O2 Flow Rate FiO2 04/17/19 07:00 98.1 60 18 133/61 (85) 97 Room Air 98.1 04/16/19 08:49 10 I&O Intake and Output 04/17/19 07:00 Intake Total 500 ml Output Total 10 ml Balance 490 ml IV Total 500 ml Output Urine Total 0 ml Estimated Blood Loss 10 ml # Voids 6 PATIENT HAS A COREAS: No Abdomen: Other (wound with less surrounding erythema, packing in place) Labs Laboratory Tests Test 04/16/19 01:05 04/16/19 08:49 04/17/19 05:00 Vancomycin Level Trough 11.8 mcg/mL (10.0-20.0) Vancomycin Last Dose Date [id number] Vancomycin Last Dose Time 1400 Glucose (Fingerstick) 167 mg/dL (70-99) White Blood Count 7.4 x10^3/uL (4.0-11.0) Red Blood Count 3.88 x10^6/uL (3.50-5.40) Hemoglobin 12.0 g/dL (12.0-15.5) Hematocrit 34.9 % (36.0-47.0) Mean Corpuscular Volume 90 fL (79-100) Mean Corpuscular Hemoglobin 31 pg (25-35) Mean Corpuscular Hemoglobin Concent 34 g/dL (31-37) Red Cell Distribution Width 12.6 % (11.5-14.5) Platelet Count 194 x10^3/uL (140-400) Neutrophils (%) (Auto) 65 % (31-73) Lymphocytes (%) (Auto) 25 % (24-48) Monocytes (%) (Auto) 8 % (0-9) Eosinophils (%) (Auto) 1 % (0-3) Basophils (%) (Auto) 1 % (0-3) Neutrophils # (Auto) 4.8 x10^3uL (1.8-7.7) Lymphocytes # (Auto) 1.9 x10^3/uL (1.0-4.8) Monocytes # (Auto) 0.6 x10^3/uL (0.0-1.1) Eosinophils # (Auto) 0.1 x10^3/uL (0.0-0.7) Basophils # (Auto) 0.0 x10^3/uL (0.0-0.2) Sodium Level 143 mmol/L (136-145) Potassium Level 3.9 mmol/L (3.5-5.1) Chloride Level 107 mmol/L (98-107) Carbon Dioxide Level 24 mmol/L (21-32) Anion Gap 12 (6-14) Blood Urea Nitrogen 13 mg/dL (7-20) Creatinine 0.7 mg/dL (0.6-1.0) Estimated GFR (Cockcroft-Gault) 84.8 Glucose Level 177 mg/dL (70-99) Calcium Level 8.6 mg/dL (8.5-10.1) Procalcitonin < 0.10 ng/mL (0.00-0.10) Laboratory Tests Test 04/17/19 05:00 White Blood Count 7.4 x10^3/uL (4.0-11.0) Red Blood Count 3.88 x10^6/uL (3.50-5.40) Hemoglobin 12.0 g/dL (12.0-15.5) Hematocrit 34.9 % (36.0-47.0) Mean Corpuscular Volume 90 fL (79-100) Mean Corpuscular Hemoglobin 31 pg (25-35) Mean Corpuscular Hemoglobin Concent 34 g/dL (31-37) Red Cell Distribution Width 12.6 % (11.5-14.5) Platelet Count 194 x10^3/uL (140-400) Neutrophils (%) (Auto) 65 % (31-73) Lymphocytes (%) (Auto) 25 % (24-48) Monocytes (%) (Auto) 8 % (0-9) Eosinophils (%) (Auto) 1 % (0-3) Basophils (%) (Auto) 1 % (0-3) Neutrophils # (Auto) 4.8 x10^3uL (1.8-7.7) Lymphocytes # (Auto) 1.9 x10^3/uL (1.0-4.8) Monocytes # (Auto) 0.6 x10^3/uL (0.0-1.1) Eosinophils # (Auto) 0.1 x10^3/uL (0.0-0.7) Basophils # (Auto) 0.0 x10^3/uL (0.0-0.2) Sodium Level 143 mmol/L (136-145) Potassium Level 3.9 mmol/L (3.5-5.1) Chloride Level 107 mmol/L (98-107) Carbon Dioxide Level 24 mmol/L (21-32) Anion Gap 12 (6-14) Blood Urea Nitrogen 13 mg/dL (7-20) Creatinine 0.7 mg/dL (0.6-1.0) Estimated GFR (Cockcroft-Gault) 84.8 Glucose Level 177 mg/dL (70-99) Calcium Level 8.6 mg/dL (8.5-10.1) Procalcitonin < 0.10 ng/mL (0.00-0.10) Assessment/Plan POD 1 wound care will change packing tomorrow THAO SCHAEFFER MD April 17, 2019 09:22
[2019-04-17 11:00] VITALS: BP 117/55
[2019-04-17] MEDS: PIPERACILLIN/TAZOBACTAM 3.375 GM in IV NORMAL SALINE 50ML 50 ML IV SCH ×2 (12:39→18:13)
[2019-04-17 13:31] LABS: VANC TR 14.5 mcg/mL (10.0-20.0)
[2019-04-17] MEDS: VANCOMYCIN PER PHARMACY MC PRN (14:26)
--- NOTE | 2019-04-17 14:27 | NUR ---
Pharmacy Vancomycin Dosing Note S:Consulted to monitor and dose vancomycin started 04/14/19. O:MELYSSA MORENO is a 63 year old F with Abscess Cellulitis . Height: 5 feet, 4 inches Weight: 74.151535 kg [place] Body Weight: 54.70 Adjusted Body Weight: 62.82 Dosing Weight: Actual Other Antibiotics: LABS: Last BUN: 13 Last Creatinine: 0.7 Creatinine Clearance: 82 mL/min Last WBC: 7.4 Last Procalcitonin: Tmax (past 24 hours): 98.8 Microbiology: I/O: 500/10 Drug Levels: Last Trough level: 14.5 on 04/17/19 at 1310 Last dose given 04/17/19 at 1415 Vancomycin Dosing: Loading Dose: 1750 mg x1 Dosing Weight: Actual Target Trough: 10-20 A: Based on trough of 14.5: P: 1. Continue Vancomycin 1250 mg IV q12h. 2. Follow up Trough levels as needed. 3. Pharmacy will continue to monitor, follow and adjust therapy as needed. David Lancaster [facility], 04/17/19 [id number]
[2019-04-17 15:00] VITALS: BP 116/57
[2019-04-17 19:42] VITALS: BP 123/57
[2019-04-17] MEDS: ATORVASTATIN CALCIUM 40 MG TABLET. PO SCH (19:53)
--- NOTE | 2019-04-17 23:13 | PN ---
DATE: 04/17/2019 LOCATION: Room 434. SUBJECTIVE: The patient is awake, alert, is present. Nursing helps with translation. OBJECTIVE: Vital signs are stable. She is afebrile. She has much less pain now with I and D of the abscess. Initial cultures are growing out some gram-negative rods, but surgical cultures are not available yet. She remains on antibiotics. Chest clear. Heart regular. Abdomen benign. Surgery help is appreciated. IMPRESSION: Abscess, status post incision and drainage; diabetes. PLAN: We will add Zosyn to her regimen until cultures are available. Otherwise, same and surgical help appreciated. MIKEL BAKER MD DR: FREDRICK/kirsten JOB#: [id number] / [id number]
[2019-04-17 23:16] VITALS: BP 125/54
[2019-04-18] MEDS: VANCOMYCIN 1.25 GM in IV NORMAL SALINE 250ML 250 ML IV SCH (00:30)
[2019-04-18 03:30] VITALS: BP 141/64
[2019-04-18] MEDS: LEVOTHYROXINE 88 MCG TABLET PO SCH (05:45)
[2019-04-18] MEDS: PIPERACILLIN/TAZOBACTAM 3.375 GM in IV NORMAL SALINE 50ML 50 ML IV SCH ×5 (05:45→18:03)
[2019-04-18 07:00] VITALS: BP 115/62
--- NOTE | 2019-04-18 08:31 | PDOC ---
Provider Note Provider Note vss, wound looks better, labs ok- treating proteus w/ zosyn , will dc vanco, likely po augmentin in am JOSEPHINE BELLA MD April 18, 2019 08:31
[2019-04-18] MEDS: metFORMIN 500 MG TABLET PO SCH ×2 (09:00→20:49)
[2019-04-18] MEDS: BISOPROLOL PO SCH (09:40)
[2019-04-18] MEDS: HYDROCHLOROTHIAZIDE PO SCH (09:40)
[2019-04-18] MEDS: MULTIVITAMIN with MINERAL TABLET. PO SCH (09:41)
[2019-04-18] MEDS: GLIMEPIRIDE 2 MG TABLET. PO SCH (09:41)
[2019-04-18] MEDS: LACTOBACILLUS RHAMNOSUS GG 1 CAPSULE. PO SCH ×2 (09:41→20:48)
[2019-04-18] MEDS: FAMOTIDINE 20 MG TABLET. PO SCH ×2 (09:41→20:49)
[2019-04-18] MEDS: ASPIRIN CHEWABLE 81 MG TABLET. PO SCH (09:41)
--- NOTE | 2019-04-18 10:07 | PDOC ---
BOSTON VICENTE DIRECTOR OF CLINICAL SERVICES 04/18/19 1007: SURGICAL PROGRESS NOTE Subjective pain managed will need assistance with daily wound care packing removed, pt tolerated Vital Signs Vital Signs Date Time Temp Pulse Resp B/P (MAP) Pulse Ox O2 Delivery O2 Flow Rate FiO2 04/18/19 07:00 98.5 67 17 115/62 (79) 95 Room Air 98.5 I&O Intake and Output 04/18/19 06:59 Intake Total 400 ml Balance 400 ml Intake Oral 400 ml # Voids 7 General: Alert, Oriented X3, Cooperative, No acute distress Abdomen: Soft, Other (wound clean, edges without necrosis ) Labs Laboratory Tests Test 04/17/19 05:00 04/17/19 13:10 White Blood Count 7.4 x10^3/uL (4.0-11.0) Red Blood Count 3.88 x10^6/uL (3.50-5.40) Hemoglobin 12.0 g/dL (12.0-15.5) Hematocrit 34.9 % (36.0-47.0) Mean Corpuscular Volume 90 fL (79-100) Mean Corpuscular Hemoglobin 31 pg (25-35) Mean Corpuscular Hemoglobin Concent 34 g/dL (31-37) Red Cell Distribution Width 12.6 % (11.5-14.5) Platelet Count 194 x10^3/uL (140-400) Neutrophils (%) (Auto) 65 % (31-73) Lymphocytes (%) (Auto) 25 % (24-48) Monocytes (%) (Auto) 8 % (0-9) Eosinophils (%) (Auto) 1 % (0-3) Basophils (%) (Auto) 1 % (0-3) Neutrophils # (Auto) 4.8 x10^3uL (1.8-7.7) Lymphocytes # (Auto) 1.9 x10^3/uL (1.0-4.8) Monocytes # (Auto) 0.6 x10^3/uL (0.0-1.1) Eosinophils # (Auto) 0.1 x10^3/uL (0.0-0.7) Basophils # (Auto) 0.0 x10^3/uL (0.0-0.2) Sodium Level 143 mmol/L (136-145) Potassium Level 3.9 mmol/L (3.5-5.1) Chloride Level 107 mmol/L (98-107) Carbon Dioxide Level 24 mmol/L (21-32) Anion Gap 12 (6-14) Blood Urea Nitrogen 13 mg/dL (7-20) Creatinine 0.7 mg/dL (0.6-1.0) Estimated GFR (Cockcroft-Gault) 84.8 Glucose Level 177 mg/dL (70-99) Calcium Level 8.6 mg/dL (8.5-10.1) Procalcitonin < 0.10 ng/mL (0.00-0.10) Vancomycin Level Trough 14.5 mcg/mL (10.0-20.0) Vancomycin Last Dose Date 04/17/19 Vancomycin Last Dose Time 0200 Laboratory Tests Test 04/17/19 13:10 Vancomycin Level Trough 14.5 mcg/mL (10.0-20.0) Vancomycin Last Dose Date 04/17/19 Vancomycin Last Dose Time 0200 Assessment/Plan ongoing wound care will likely need home health for wound care assistance THAO SCHAEFFER MD 04/18/19 1345: SURGICAL PROGRESS NOTE Assessment/Plan as above discharge planning with BOSTON GOULD APRN April 18, 2019 10:07 THAO SCHAEFFER MD April 18, 2019 13:45
[2019-04-18] MEDS: HYDROcodone/APAP 5/325MG 1 TAB TABLET PO PRN (10:27)
[2019-04-18 11:00] VITALS: BP 128/59
[2019-04-18 15:00] VITALS: BP 113/55
--- NOTE | 2019-04-18 15:10 | NUR ---
Wound Care Pt already had dressing changed today, will follow up tomorrow prior to discharge.
--- NOTE | 2019-04-18 15:27 | NUR ---
SW following for discharge planning. Discussed with RN, pt had a debridement and has wound care needs. Possible discharge tomorrow with home health. SW to follow up with family to determine home health agency they would like.
[2019-04-18 19:00] VITALS: BP 138/57
[2019-04-18] MEDS: ATORVASTATIN CALCIUM 40 MG TABLET. PO SCH (20:49)
[2019-04-18 23:00] VITALS: BP 154/57
[2019-04-19] MEDS: PIPERACILLIN/TAZOBACTAM 3.375 GM in IV NORMAL SALINE 50ML 50 ML IV SCH ×3 (00:03→13:35)
[2019-04-19 03:00] VITALS: BP 131/64
[2019-04-19] MEDS: LEVOTHYROXINE 88 MCG TABLET PO SCH (06:03)
[2019-04-19 07:00] VITALS: BP 154/72
--- NOTE | 2019-04-19 08:32 | PDOC ---
Provider Note Provider Note [id number] JOSEPHINE BELLA MD April 19, 2019 08:32
[2019-04-19] MEDS: BISOPROLOL PO SCH (09:04)
[2019-04-19] MEDS: HYDROCHLOROTHIAZIDE PO SCH (09:04)
[2019-04-19] MEDS: metFORMIN 500 MG TABLET PO SCH (09:05)
[2019-04-19] MEDS: ASPIRIN CHEWABLE 81 MG TABLET. PO SCH (09:06)
[2019-04-19] MEDS: HYDROcodone/APAP 5/325MG 1 TAB TABLET PO PRN ×3 (09:06→17:49)
[2019-04-19] MEDS: LACTOBACILLUS RHAMNOSUS GG 1 CAPSULE. PO SCH (09:06)
[2019-04-19] MEDS: FAMOTIDINE 20 MG TABLET. PO SCH (09:07)
[2019-04-19] MEDS: MULTIVITAMIN with MINERAL TABLET. PO SCH (09:07)
[2019-04-19] MEDS: GLIMEPIRIDE 2 MG TABLET. PO SCH (09:08)
--- NOTE | 2019-04-19 09:48 | DS ---
DATE OF DISCHARGE: 04/19/2019 HOSPITAL SUMMARY: A 63-year-old white female with diabetes; infected sebaceous cyst, incised and this was drained as an outpatient, has failed to improve and came in with continued cellulitis and swelling. Wound culture was not done as an outpatient in urgent care and she had been on Keflex and Septra without improvement. Her CBC and chemistry profile were unremarkable and vancomycin levels were therapeutic. Wound culture ultimately grew out Proteus mirabilis sensitive to all antibiotics tested. She was treated initially with IV vancomycin and clinically improved, but because of continued swelling, a sonogram was done, which showed evidence of further fluid collection. Dr. Harrison performed incision and drainage under general anesthesia with debridement of necrotic skin and cleaned her wound margins and wound packing done and she is feeling better. Vancomycin was changed to Zosyn because of the Proteus and she is stable and able to be followed as an outpatient at this point. FINAL DIAGNOSIS: Abdominal wall abscess. OPERATIONS: Incision and drainage of the abscess. COMPLICATIONS: None. CONSULTATIONS: Dr. Harrison. DISPOSITION: She will take 5 more days of Augmentin 875 mg twice a day. Continue all home meds the same, wound care packing per Dr. Harrison's office and I will see her in the office in 1-2 weeks for followup for diabetes. PROGNOSIS: Good. JOSEPHINE BELLA MD DR: SUZY/nts JOB#: [id number] / [id number]
[2019-04-19 11:00] VITALS: BP 150/68
--- NOTE | 2019-04-19 11:36 | PDOC ---
SURGICAL PROGRESS NOTE Subjective ready to go home Vital Signs Vital Signs Date Time Temp Pulse Resp B/P (MAP) Pulse Ox O2 Delivery O2 Flow Rate FiO2 04/19/19 10:15 Room Air 04/19/19 07:00 98.1 65 18 154/72 (99) 95 98.1 I&O Intake and Output 04/19/19 07:00 Intake Total 900 ml Balance 900 ml Intake Oral 900 ml # Voids 9 General: Alert, Oriented X3, Cooperative, No acute distress Skin: Other (wound with packing, erythema improved ) Labs Laboratory Tests Test 04/17/19 13:10 Vancomycin Level Trough 14.5 mcg/mL (10.0-20.0) Vancomycin Last Dose Date 04/17/19 Vancomycin Last Dose Time 0200 Assessment/Plan wound care to see, arrangement for HH to assist with dressings FU in clinic 1 week BOSTON VICETNE APRN April 19, 2019 11:36
--- NOTE | 2019-04-19 12:37 | NUR ---
SW following for discharge planning. Discussed with RN. KAREN met with pt and pt's family to discuss home health at discharge. Pt and family are not aware of any home health companies but would like whoever is in network and specifically [facility]. KAREN phoned and faxed facesheet to [employer] to determine if pt's insurance is in network. RN notified. KAREN will continue to follow.
[2019-04-19 15:00] VITALS: BP 122/62
--- NOTE | 2019-04-19 15:29 | NUR ---
Wound Care: Follow up with pt following I&D of R lateral flank abscess on 04/16/19. Dressing had been changed by Eda BRUMFIELD on 04/18. Packing removed, cleansed, measured and pictured. Planned DC to home with home health today. Packed with Aquacel AG and covered with foam dressing. Provided extra dressing to change at home if needed. Initiated home wound vac application (Candi Bates RN), and scheduled pt to be seen in clinic on 04/22/19 for vac placement. DC instructions detailed in discharge paperwork. No other open areas noted on head to toe assessment.
--- NOTE | 2019-04-19 19:42 | NUR ---
Pt was discharged to home with HH today in stable condition with all personal belongings after reviewing all pertinent information including education, medications, follow up and at home care. Pt was escorted by staff and family and driven home by her daughter who picked her up at the main exit.
== END 2019-04-19 17:30 | disposition home health service (06) | DRG 580 ==
LOC: 4 NORTH 10:32
PROVIDERS: ADMIT Family Medicine; ATTEND Family Medicine
PROC: 0KBK0ZZ Excision of Right Abdomen Muscle, Open Approach (ICD-10-PCS; principal; 2019-04-16 08:00)
DX: L02.211 Cutaneous abscess of abdominal wall (principal); E44.1 Mild protein-calorie malnutrition; L72.3 Sebaceous cyst; E11.9 Type 2 diabetes mellitus without complications
CPT/HCPCS: 36415; 76705; 80048; 80053; 80202; 82565; 82962; 84145; 85025; 87071; 87075; 87186; 90471; 90715; A7015; J1100; J2001; J2543; J2704; J3010; J3370; J3490; J7040; J7050; A4461; J7030